=== PATIENT | male | born 2005 | race Two or more races ===

== ENCOUNTER 2025-05-05 17:37 | Emergency (ER) | payer BC ==
[~2025-05-05] VITALS: Ht 175.3 cm; Wt 99.8 kg
[2025-05-05 17:46] VITALS: BP 104/66; O2SAT 96
[2025-05-05] MEDS ORDERED: BENZONATATE 200 MG CAPSULE PO ONE (18:15)
[2025-05-05] MEDS ORDERED: CETIRIZINE HCL 5 MG/5 ML ML PO ONE (18:15)
[2025-05-05] MEDS ORDERED: BUTALB/ACETAMINOPHEN/CAFFEINE 1 TAB TABLET PO ONE (18:15)
[2025-05-05] MEDS ORDERED: 0.9 % SODIUM CHLORIDE 1,000 ML IV ONE (18:15)
[2025-05-05] MEDS ORDERED: FAMOTIDINE/PF 20 MG/2 ML VIAL IV ONE (18:15)
[2025-05-05] MEDS ORDERED: ONDANSETRON HCL 2 MG/ML VIAL IV ONE (18:15)
[2025-05-05 18:49] LABS: BASO % 0.6 % (0.1-1.2); EOS # 0.01 (0.04-0.54); EOS % 0.1 % (0.7-7.0); LYMPH # 0.82 (1.18-3.74); LYMPH % 11.5 % (19.3-53.1); MEAN PLATELET VOLUME 9.10 fl (9.4-12.4); MONO # 1.31 (0.24-0.82); NEUT # 4.95 (1.56-6.13); NEUT % 69.4 % (34.0-71.1); RED CELL DISTRIBUTION WIDTH 12.2 % (11.6-14.4)
[2025-05-05 18:50] LABS: MONO % 18.3 % (4.7-12.5)
[2025-05-05] MEDS ORDERED: PEPCID AC20 MG PO (19:07)
[2025-05-05] MEDS ORDERED: OSEL75CA PO (19:07)
[2025-05-05 19:15] LABS: COVID-19 AG NEGATIVE (NEGATIVE)
== END 2025-05-05 19:54 | disposition home or self-care (01) ==
LOC: ER 17:37
PROVIDERS: General Practice
DX: J10.1 Influenza due to other identified influenza virus with other respiratory manifestations (principal); Z20.822 Contact with and (suspected) exposure to COVID-19